=== PATIENT | male | born 1960 | race Two or more races ===

== ENCOUNTER 2022-08-05 08:14 | Emergency (ER) | payer MEDICAID ==
[~2022-08-05] VITALS: Ht 170.2 cm; Wt 87.2 kg
[2022-08-05 09:01] LABS: Urine Bacteria NONE SEEN /hpf (None Seen); Urine Blood Negative /uL (Negative); Urine Specific Gravity 1.014 (1.001-1.035); Urine WBC <1 /hpf (0 - 3)
[2022-08-05 09:16] VITALS: BP 146/85
[2022-08-05] MEDS ORDERED: ONDANSETRON ODT 4 MG TAB PO ONE (09:30)
[2022-08-05] MEDS ORDERED: ACETAMINOPHEN 500 MG TAB PO ONE (09:30)
[2022-08-05] MEDS ORDERED: CIP500T PO (10:32)
[2022-08-05] MEDS ORDERED: TAM04C PO (11:28)
[2022-08-05] MEDS ORDERED: MAGN400S25 PO (11:30)
== END 2022-08-05 11:39 | disposition home or self-care (01) ==
LOC: ER 08:14
DX: N40.1 Benign prostatic hyperplasia with lower urinary tract symptoms (principal); K59.00 Constipation, unspecified; E11.9 Type 2 diabetes mellitus without complications; Z88.1 Allergy status to other antibiotic agents
CPT/HCPCS: 74176; 81001; 87086; 99284; Q0162